=== PATIENT | male | born 1950 | race Caucasian/White ===

== ENCOUNTER → 2020-01-03 | Outpatient (CLI) | payer SELFPAY ==
--- NOTE | 2020-01-03 10:56 | ECGEPIP ---
[facility] Test Date: 2020-01-03 Pat Name: JUAN DAVID ZHANG Department: Room: - Gender: Male [employer]ker[employer] Agent: [facility] : 1950 Requested By: Gerald Kirk @ [facility] Order Number: [id number] Reading MD: Gladis Vyas Measurements Intervals [place] Rate: 64 P: 52 [place]: 145 QRS: 23 QRSD: 93 T: 31 QT: 379 QTc: 391 Interpretive Statements SINUS RHYTHM NORMAL NO PRIOR Electronically Signed on 01-03-2020 10:56:15 EDT by Gladis Vyas
[2020-01-03 11:00] LABS: INR 1.1; PROTHROMBIN TIME 13.9 SECONDS (11.8-14.0)
[2020-01-03 11:11] LABS: HEMATOCRIT 45.7 % (42.0-52.0); HEMOGLOBIN 15.6 g/dl (13.5-17.5); MEAN CORPUSCULAR HEMOGLOBIN 29.3 pg (27.0-33.0); MEAN CORPUSCULAR HGB CONC 34.1 g/dl (32.0-36.5); MEAN CORPUSCULAR VOLUME 85.9 fl (80.0-96.0); PLATELET COUNT, AUTOMATED 184 10^3/uL (150-450); RED BLOOD COUNT 5.32 10^6/uL (4.30-6.10); WHITE BLOOD COUNT 7.5 10^3/uL (4.0-10.0)
[2020-01-03 11:36] LABS: ALBUMIN 3.5 GM/DL (3.2-5.2); ALT/SGPT 19 U/L (12-78); BILIRUBIN,TOTAL 0.5 MG/DL (0.2-1.0); BLOOD UREA NITROGEN 28 MG/DL (7-18); CALCIUM LEVEL 8.9 MG/DL (8.8-10.2); CARBON DIOXIDE LEVEL 30 MEQ/L (21-32); CHLORIDE LEVEL 107 MEQ/L (98-107); CREATININE FOR GFR 0.79 MG/DL (0.70-1.30); GLOMERULAR FILTRATION RATE > 60.0 (>49); GLUCOSE, FASTING 117 MG/DL (70-100); POTASSIUM SERUM 4.2 MEQ/L (3.5-5.1); SODIUM LEVEL 140 MEQ/L (136-145); TOTAL PROTEIN 6.6 GM/DL (6.4-8.2)
--- NOTE | 2020-01-03 12:15 | REP ---
PA and lateral chest: There are no comparisons. The lung remy are clear. The cardiac size is normal. The irma, mediastinum, and skeletal structures are unremarkable. Impression: Negative PA and lateral chest. Electronically Signed by Ab Del Cid MD 01/03/2020 12:06 P
[2020-01-03 12:17] LABS: ERYTHROCYTE SEDIMENTATION RATE 4 mm/hr (0-20)
== END ==
LOC: M LAB 09:31
PROVIDERS: ATTEND Orthopaedic Surgery
DX: Z01.818 Encounter for other preprocedural examination (principal); M16.12 Unilateral primary osteoarthritis, left hip

== ENCOUNTER 2020-01-28 07:30 | Inpatient (IN) | payer SELFPAY ==
[~2020-01-28] VITALS: Ht 175.3 cm; Wt 77.6 kg
[~2020-01-28 07:30] MED LIST: IBUP200C28 PO
[2020-05-04] MEDS ORDERED: [UNRECOGNIZED DRUG - OTHER] PO (10:28)
[2020-05-04] MEDS ORDERED: PROBCAP14 PO (10:28)
[2020-05-04] MEDS ORDERED: MULTCAP PO (10:28)
[2020-05-04] MEDS ORDERED: COMPTAB7 PO (10:28)
--- NOTE | 2020-05-06 16:21 | HPE ---
DATE OF ADMISSION: 05/11/2020 ATTENDING PHYSICIAN: Dr. Gerald Kirk CHIEF COMPLAINT: Left hip pain and stiffness. HISTORY: The patient is a 70-year-old male with progressively worsening left hip pain and stiffness. He failed to improve with conservative measures. He continued to have symptoms with weightbearing activities and activities of daily living. He consented for an elective left total hip arthroplasty with Dr. Kirk for his continued symptoms. Medical optimization completed with Dr. Olivares and was reviewed today. CURRENT MEDICATIONS: - cod liver oil - multivitamin - prostate health oral capsule - ibuprofen 200 mg up to three times a day as needed CHRONIC MEDICAL CONDITIONS: None. PAST SURGICAL HISTORY: Tonsillectomy. ALLERGIES: There are NO KNOWN DRUG ALLERGIES. SOCIAL HISTORY: The patient has never smoked and denies alcohol use. REVIEW OF SYSTEMS: The patient denies fevers, chills, nausea, vomiting or diarrhea. Denies chest pain, shortness of breath, lightheadedness, dizziness or headaches. He denies any abdominal pain. He denies any recent upper respiratory or urinary tract infection symptoms. He does continue to have left hip pain with weightbearing activities and activities of daily living. PHYSICAL EXAMINATION: GENERAL: Well-nourished, well-developed male, in no apparent distress. He is alert, oriented and cooperative. Mood and affect are appropriate. VITAL SIGNS: Height 5 feet 6-1/2 inches. Weight 177 pounds. Temperature 98.6. Blood pressure 132/78. Heart rate 64. Respirations 14. NECK: Supple without lymphadenopathy. HEART: Regular rate and rhythm. LUNGS: Clear to auscultation bilaterally. ABDOMEN: Soft and nontender to palpation. Bowel sounds are present. MUSCULOSKELETAL: Left hip exhibits no gross abnormalities. Skin is intact. There is decreased motion of the hip, more so with internal rotation. Strength in the left lower extremity is 5/5. Calf is soft, nontender to palpation. No evidence of deep venous thrombosis (DVT). He is neurovascularly intact distally. LABORATORY DATA: EKG: Sinus rhythm. CHEST X-RAY: Negative PA and lateral chest. LEFT HIP X-RAY: Notable for end-stage degenerative changes. COMPLETE BLOOD COUNT: ESR 5, WBCs 7, RBCs 5.12, hemoglobin 15, hematocrit 44.5, platelets 186. COMPREHENSIVE METABOLIC PROFILE: Fasting glucose 76, BUN elevated at 20, creatinine decreased at 0.69, GFR greater than 60, sodium 141, potassium 4.2, chloride 107, carbon dioxide 29, anion gap decreased at 5, calcium 8.9, AST 14, ALT 20, alkaline phosphatase 50, total bilirubin 0.4, total protein 6.8, albumin 3.5, albumin-globulin ratio 1.1. Prothrombin time elevated at 14.3, INR 1.14. IMPRESSION: Left hip osteoarthritis with x-rays notable for end-stage degenerative changes. PLAN: The patient has consented for an elective left total hip arthroplasty with Dr. Kirk for his continued symptoms. Medical optimization completed with Dr. Johnson. The patient will use his Bactroban and Hibiclens as directed. He will be nothing by mouth after midnight the night prior to surgery. The patient will call [facility] Monday afternoon to get a report time for his day of surgery. The patient understands that he will take his primary sub acute care nurse's recommendations for how to take his daily medications. ASHWINI
[2020-05-11] MEDS ORDERED: LR 1,000 ML IV ONE (07:00)
[2020-05-11] MEDS ORDERED: ceFAZolin SOD 2 GM in IV 1 EA IV ONE (07:00)
[2020-05-11] MEDS ORDERED: fentaNYL 100 MCG/2 ML INJECTION (J3010) As Ordered ONE (08:40)
[2020-05-11] MEDS ORDERED: propofoL 200 MG/20 ML VIAL As Ordered ONE (08:40)
[2020-05-11] MEDS ORDERED: MIDAZOLAM INJ 2MG/2ML VIAL (J2250 PER 1MG) As Ordered ONE (08:40)
[2020-05-11] MEDS ORDERED: LIDOCAINE 2% 100MG/5ML SDV (FOR ANES.) As Ordered ONE (08:43)
--- NOTE | 2020-05-11 09:24 | IPN ---
DATE: 05/11/2020 Patient seen and examined. He wished to go ahead with a left hip replacement. He has been having significant pain with it. He had failed conservative management and understands the nature of the procedure, the risks of bleeding, infection, damage to nerves, vessels, persistent pain, wear loosening, dislocation, leg length inequality, blood clots, medical problems, , among others.
[2020-05-11] MEDS ORDERED: BUPIVACAINE LIPOSOME/PF 1.3% 20ML VIAL (13.3MG/ML)(EXPAREL)(C9290 PER1MG) As Ordered ONE (10:02)
[2020-05-11] MEDS ORDERED: ceFAZolin 1GM VIAL (J0690 PER 500MG) As Ordered ONE (10:02)
[2020-05-11] MEDS ORDERED: EPINEPHrine INJ 1 MG/ML 1ML AMP As Ordered ONE (10:02)
[2020-05-11] MEDS ORDERED: TRANEXAMIC ACID 100 MG/ML 10ML VIAL As Ordered ONE (10:02)
[2020-05-11] MEDS ORDERED: ePHEDrine SULFATE 25 MG/5 ML(5MG/ML) SYRINGE As Ordered ONE (11:19)
[2020-05-11] MEDS ORDERED: ACETAMINOPHEN 1000MG 100ML IV BTL (OFIRMEV) (J0131 PER 10MG) As Ordered ONE (11:24)
[2020-05-11] MEDS ORDERED: ONDANSETRON 4MG/2ML VIAL As Ordered ONE (11:24)
[2020-05-11] MEDS ORDERED: KETOROLAC 60MG 2ML VIAL As Ordered ONE (11:24)
[2020-05-11] MEDS ORDERED: LR 1,000 ML IV SCH ×2 (12:15)
[2020-05-11] MEDS ORDERED: MORPHINE 2 MG/ML 1ML VIAL (J2270) IV PRN (12:15)
[2020-05-11] MEDS ORDERED: HYDROMORPHONE HCL 0.5 MG/ 0.5 ML SYRINGE (J1170 PER 1) IV PRN (12:15)
[2020-05-11] MEDS ORDERED: ACETAMINOPHEN TAB 650MG DOSE (2X325MG) PO PRN (12:15)
[2020-05-11] MEDS ORDERED: PERCOCET 5MG/325MG TAB PO PRN (12:15)
[2020-05-11] MEDS ORDERED: fentaNYL 100 MCG/2 ML INJECTION (J3010) IV PRN (12:15)
[2020-05-11] MEDS ORDERED: MORPHINE 4 MG/ML 1ML VIAL/SYRINGE (J2270) IV PRN (12:15)
[2020-05-11] MEDS ORDERED: ONDANSETRON 4MG/2ML VIAL IV PRN ×2 (12:15)
--- NOTE | 2020-05-11 14:02 | REP ---
Clinical: Status post arthroplasty. Technique: AP and cross-table lateral views. Findings: The patient is status post left hip replacement with normal positioning and appearance to the femoral and acetabular components. Overlying postsurgical changes appreciated. Impression: Satisfactory left hip replacement radiographs. Electronically Signed by Jarrod Coyne MD 05/11/2020 12:40 P
[2020-05-11] MEDS ORDERED: oxyCODONE 5MG TAB As Ordered ONE ×2 (14:10→14:58)
[2020-05-11] MEDS: oxyCODONE 5MG TAB PO PRN ×2 (14:12→14:58)
[2020-05-11 15:30] VITALS: BP 141/69
[2020-05-11 16:00] VITALS: BP 140/70
[2020-05-11 16:30] VITALS: BP 145/72
--- NOTE | 2020-05-11 17:17 | HPEPDOC ---
General Date of Admission May 11, 2020 at 08:28 Date of Service: May 11, 2020 Chief Complaint The patient is a 70-year-old male admitted with a reason for visit of Left Hip Osteoarthritis. Source: Patient History of Present Illness Consultation report Consultation requested by Dr Kirk HPI: 70 year old male admitted for elective left total hip arthroplasty for advanced osteoarthritis that could not be managed by medical management. I am seeing the patient postoperatively in the PACU. Doing well except for pain int he left hip 12/30 which is just starting, sharp aching, no radiation. Home Medications Scheduled Ibuprofen (Ibuprofen) 200 Mg Capsule, 200 MG PO DAILY, (Reported) Lactobacillus Acidophilus (Probiotic) 1 Each Capsule, 1 CAP PO DAILY, (Reported) Multivitamin (Multivitamins) 1 Each Capsule, 1 CAP PO DAILY, (Reported) Saw/Vit E/Sod Steph/Lyc/Beta/Pyg (Prostate Health Caplet) 1 Each Tablet, 1 TAB PO DAILY, (Reported) [plexus vitamin drink] , 1 PO DAILY, (Reported) Allergies Coded Allergies: SEASONAL ALLERGIES (Verified Allergy, Intermediate, 05/04/20) Past Medical History Medical History None Family History Significant Family History: Hypertension Social History * Smoker: Denies Alcohol: rarely Drugs: denies A-FIB/CHADSVASC A-FIB History Current/History of A-Fib/PAF?: No Review of Systems Constitutional: Denies: Chills, Fever, Night Sweats Eyes: Denies: Pain, Vision change ENT: Denies: Head Aches, Ear Pain, Dysphagia Skin: Denies: Rash, Lesions, Breakdown Pulmonary: Denies: Dyspnea, Cough Cardiovascular: Denies: Chest Pain, Palpitations, Orthopnea, Paroxysmal Noc. Dyspnea, Lt Headedness Gastrointestinal: Denies: Nausea, Vomiting, Abdominal Pain, Diarrhea Genitourinary: Denies: Dysuria, Frequency, Incontinence, Retention Hematologic: Denies: Bruising, Bleeding Excessively Musculoskeletal: Reports: Joint Pain (left hip); Denies: Neck Pain, Back Pain, Muscle Pain, Spasms Physical Examination General Exam: Positive: Alert, Cooperative, No Acute Distress Eye Exam: Positive: PERRLA, Conjunctiva & lids normal, EOMI; Negative: Sclera icteric ENT Exam: Positive: Atraumatic, Mucous membr. moist/pink, Pharynx Normal Neck Exam: Positive: Supple; Negative: JVD, thyromegaly Chest Exam: Positive: Clear to auscultation, Normal air movement Heart Exam: Positive: Rate Normal, Regular Rhythm, Normal S1, Normal S2; Negative: Murmurs, Rubs Abdomen Exam: Positive: Normal bowel sounds, Soft; Negative: Tenderness, Hepatospenomegaly Extremity Exam: Positive: Normal pulses; Negative: Clubbing, Cyanosis, Edema Skin Exam: Positive: Nl turgor and temperature; Negative: Breakdown, Lesion Vital Signs Vital Signs Date Time Temp Pulse Resp B/P (MAP) Pulse Ox O2 Delivery O2 Flow Rate FiO2 05/11/20 16:00 97.5 56 18 140/70 (93) 97 Room Air Assessment/Plan HPI: 70 year old male admitted for elective left total hip arthroplasty for advanced osteoarthritis that could not be managed by medical management. I am seeing the patient postoperatively for managemetn of any medical comorbidities Left Total Hip arthroplasty pain control , dvt prophylaxis as er ortho PT/OT Patient does not have any medical problems at present. Will continue to follow while admitted. Plan / VTE VTE Prophylaxis Ordered?: Yes BAIRON WANG MD May 11, 2020 17:17
[2020-05-11 17:30] VITALS: BP 135/72
[2020-05-11] MEDS: ceFAZolin SOD 2 GM in IV 1 EA IV SCH (18:21)
[2020-05-11 22:00] VITALS: BP 134/72
[2020-05-12 02:33] VITALS: BP 120/67
[2020-05-12] MEDS: ceFAZolin SOD 2 GM in IV 1 EA IV SCH (03:22)
[2020-05-12 05:25] VITALS: BP 129/66
[2020-05-12] MEDS ORDERED: PERCOCET 5MG/325MG TAB PO PRN (06:15)
[2020-05-12 06:40] LABS: HEMATOCRIT 37.6 % (42.0-52.0); HEMOGLOBIN 12.5 g/dl (13.5-17.5); MEAN CORPUSCULAR HEMOGLOBIN 29.2 pg (27.0-33.0); MEAN CORPUSCULAR HGB CONC 33.2 g/dl (32.0-36.5); MEAN CORPUSCULAR VOLUME 87.9 fl (80.0-96.0); PLATELET COUNT, AUTOMATED 150 10^3/uL (150-450); RED BLOOD COUNT 4.28 10^6/uL (4.30-6.10); WHITE BLOOD COUNT 7.3 10^3/uL (4.0-10.0)
[2020-05-12] MEDS ORDERED: PERC5TAB12 PO (07:13)
[2020-05-12] MEDS ORDERED: XARE10TA PO (07:13)
[2020-05-12] MEDS ORDERED: MIRALAX *UNIT DOSE* 17GM PACKET PO SCH (09:00)
[2020-05-12] MEDS ORDERED: MOM 30ML SUSPENSION UDC PO SCH (09:00)
--- NOTE | 2020-05-12 15:24 | IPNPDOC ---
Text Note Date of Service The patient was seen on 05/12/20. NOTE Subjective: Pt feels well. pain controlled. No N/v/abd pain Objective: Vitals: (see below) General: No acute distress, laying comfortably in bed. HEENT: Moist mucous membranes. Neck: No JVD or lymphadenopathy Cardiac: RRR, No murmurs Pulm: Clear to auscultation b/l. No wheezing, rhonchi Abd: NT/ND + BS Ext: No edema or cyanosis Left hip site with bandage clean/dry. Distal pulses intact. cap refill <2sec. No bleeding noted. Labs (see below) Assessment/Plan 1.Left Total Hip arthroplasty - management per ortho. 2. Pain controlled DVT prophy: Per ortho PT on board. F/u with PCP in 1-2 weeks. VS,Fishbone, I+O VS, Fishbone, I+O Laboratory Tests 05/12/20 06:08 Vital Signs Date Time Temp Pulse Resp B/P (MAP) Pulse Ox O2 Delivery O2 Flow Rate FiO2 05/12/20 08:53 18 05/12/20 05:25 97.3 72 129/66 (87) 96 Nasal Cannula 2.0 I&O- Last 24 Hours up to 6 AM 05/12/20 05:59 Intake Total 2390 ml Output Total 200 ml Balance 2190 ml GABRIELA DIAZ MD May 12, 2020 15:24
[2020-05-12] MEDS ORDERED: RIVAROXABAN 10 MG TAB (XARELTO) PO SCH (18:00)
== END 2020-05-12 14:10 | disposition home or self-care (01) | DRG 301 ==
LOC: M OR 05-11 08:28 → M MS5PR 05-11 15:25
PROVIDERS: ADMIT Orthopaedic Surgery; ATTEND Orthopaedic Surgery
PROC: 0SRB0JZ Replacement of Left Hip Joint with Synthetic Substitute, Open Approach (ICD-10-PCS; principal; 2020-05-11 11:00)
DX: M16.12 Unilateral primary osteoarthritis, left hip (principal); Z79.899 Other long term (current) drug therapy

== ENCOUNTER → 2020-05-06 | Outpatient (CLI) | payer SELFPAY ==
[~2020-05-06] MED LIST changes: +COMPTAB7 PO; +MULTCAP PO; +PERC5TAB12 PO; +PROBCAP14 PO; +XARE10TA PO; +[UNRECOGNIZED DRUG - OTHER] PO
[2020-05-06 11:44] LABS: HEMATOCRIT 44.5 % (42.0-52.0); MEAN CORPUSCULAR HEMOGLOBIN 29.3 pg (27.0-33.0); MEAN CORPUSCULAR HGB CONC 33.7 g/dl (32.0-36.5); MEAN CORPUSCULAR VOLUME 86.9 fl (80.0-96.0); PLATELET COUNT, AUTOMATED 186 10^3/uL (150-450); RED BLOOD COUNT 5.12 10^6/uL (4.30-6.10)
[2020-05-06 11:55] LABS: INR 1.14; PROTHROMBIN TIME 14.3 SECONDS (11.8-14.0)
[2020-05-06 12:06] LABS: ERYTHROCYTE SEDIMENTATION RATE 5 mm/hr (0-20)
[2020-05-06 12:47] LABS: ALBUMIN 3.5 GM/DL (3.2-5.2); ALT/SGPT 20 U/L (12-78); BILIRUBIN,TOTAL 0.4 MG/DL (0.2-1.0); BLOOD UREA NITROGEN 20 MG/DL (7-18); CALCIUM LEVEL 8.9 MG/DL (8.8-10.2); CARBON DIOXIDE LEVEL 29 MEQ/L (21-32); CHLORIDE LEVEL 107 MEQ/L (98-107); CREATININE FOR GFR 0.69 MG/DL (0.70-1.30); GLOMERULAR FILTRATION RATE > 60.0 (>49); GLUCOSE, FASTING 76 MG/DL (70-100); POTASSIUM SERUM 4.2 MEQ/L (3.5-5.1); SODIUM LEVEL 141 MEQ/L (136-145); TOTAL PROTEIN 6.8 GM/DL (6.4-8.2)
--- NOTE | 2020-05-06 14:08 | REP ---
REASON: Total left hip arthroplasty. COMPARISON: No priors. FINDINGS: The superior mediastinal structures are midline. The cardiac silhouette is unremarkable in size, shape, and position. The diaphragmatic surfaces of the lungs are regular, and the costophrenic angles are clear. The pulmonary remy are clear. The imaged osseous structures are intact. IMPRESSION: There is no acute cardiopulmonary disease. Electronically Signed by Driss Wolff DO 05/06/2020 04:09 P
--- NOTE | 2020-05-07 14:53 | ECGEPIP ---
[facility] Test Date: 2020-05-06 Pat Name: JUAN DAVID ZHANG Department: Room: - Gender: Male [employer] General Manager: JA[employer] : 1950 Requested By: Gerald Kirk Order Number: [id number] Reading MD: Nawaf Lopez Measurements Intervals [place] Rate: 55 P: 52 CT: 153 QRS: 20 QRSD: 90 T: 25 QT: 404 QTc: 388 Interpretive Statements Sinus bradycardia Otherwise normal Other than slower rate unchanged from 01/03/20 Electronically Signed on 05-07-2020 14:53:38 EDT by Nawaf Lopez
== END ==
LOC: M LAB 10:35
PROVIDERS: ATTEND Orthopaedic Surgery
DX: Z01.818 Encounter for other preprocedural examination (principal); M17.12 Unilateral primary osteoarthritis, left knee

== ENCOUNTER → 2020-11-24 | Outpatient (CLI) | payer SELFPAY ==
[2020-11-24 13:55] LABS: BASO % 0.3 % (0.0-1.0); EOS # 0.1 10^3/uL (0.0-0.5); EOS % 1.4 % (0.0-3.0); HEMATOCRIT 39.3 % (42.0-52.0); HEMOGLOBIN 12.5 g/dl (13.5-17.5); LYMPH # 1.4 10^3/uL (1.5-5.0); LYMPH % 20.7 % (24.0-44.0); MEAN CORPUSCULAR HEMOGLOBIN 27.5 pg (27.0-33.0); MEAN CORPUSCULAR HGB CONC 31.8 g/dl (32.0-36.5); MEAN CORPUSCULAR VOLUME 86.4 fl (80.0-96.0); MONO # 0.6 10^3/uL (0.0-0.8); MONO % 8.8 % (0.0-5.0); NEUTROPHILS # 4.5 10^3/uL (1.5-8.5); NEUTROPHILS % 68.5 % (36.0-66.0); PLATELET COUNT, AUTOMATED 205 10^3/uL (150-450); RED BLOOD COUNT 4.55 10^6/uL (4.30-6.10); WHITE BLOOD COUNT 6.6 10^3/uL (4.0-10.0)
--- NOTE | 2020-11-24 14:20 | REP ---
INDICATION: PELVIC SWELLING, HIGH BPH LABS 1ST US 2ND COMPARISON: None TECHNIQUE: Real time B-mode ultrasound examination using curved array transducer. FINDINGS: Bladder demonstrates layering debris without wall thickening or mass lesion. Bilateral ureteral jets are identified. Prevoid bladder measures 14.9 x 12.3 x 10.4 cm (999 cc). Postvoid bladder measures 14.1 x 11.9 x 7.9 cm (693 cc). Postvoid residual equals 69% IMPRESSION: Significantly abnormal postvoid residual volume to the bladder. <Electronically signed by Jarrod Coyne > 11/24/20 [id number]
[2020-11-24 14:26] LABS: ALBUMIN 3.5 GM/DL (3.2-5.2); ALT/SGPT 20 U/L (12-78); BILIRUBIN,TOTAL 0.4 MG/DL (0.2-1.0); BLOOD UREA NITROGEN 19 MG/DL (7-18); CALCIUM LEVEL 9.1 MG/DL (8.8-10.2); CARBON DIOXIDE LEVEL 28 MEQ/L (21-32); CHLORIDE LEVEL 106 MEQ/L (98-107); CREATININE FOR GFR 0.87 MG/DL (0.70-1.30); GLOMERULAR FILTRATION RATE > 60.0 (>49); GLUCOSE, FASTING 88 MG/DL (70-100); POTASSIUM SERUM 3.9 MEQ/L (3.5-5.1); PROSTATIC SPECIFIC AG MONITOR 1.36 NG/ML (< 4.00); SODIUM LEVEL 140 MEQ/L (136-145); TOTAL PROTEIN 6.9 GM/DL (6.4-8.2)
== END ==
LOC: M LAB 13:17
PROVIDERS: ATTEND Family Medicine
DX: N40.0 Benign prostatic hyperplasia without lower urinary tract symptoms (principal); R63.4 Abnormal weight loss

== ENCOUNTER → 2021-02-11 | Outpatient (CLI) | payer SELFPAY ==
[2021-02-11 11:59] LABS: HEMATOCRIT 42.3 % (42.0-52.0); HEMOGLOBIN 13.9 g/dl (13.5-17.5); MEAN CORPUSCULAR HEMOGLOBIN 28.3 pg (27.0-33.0); MEAN CORPUSCULAR HGB CONC 32.9 g/dl (32.0-36.5); MEAN CORPUSCULAR VOLUME 86.2 fl (80.0-96.0); PLATELET COUNT, AUTOMATED 204 10^3/uL (150-450); RED BLOOD COUNT 4.91 10^6/uL (4.30-6.10); WHITE BLOOD COUNT 6.4 10^3/uL (4.0-10.0)
[2021-02-11 12:10] LABS: INR 1.07; PROTHROMBIN TIME 14.1 SECONDS (12.5-14.3)
[2021-02-11 12:31] LABS: ERYTHROCYTE SEDIMENTATION RATE 7 mm/hr (0-20)
[2021-02-11 12:40] LABS: ALBUMIN 3.6 GM/DL (3.2-5.2); ALT/SGPT 15 U/L (12-78); BILIRUBIN,TOTAL 0.3 MG/DL (0.2-1.0); BLOOD UREA NITROGEN 24 MG/DL (7-18); CALCIUM LEVEL 9.3 MG/DL (8.8-10.2); CARBON DIOXIDE LEVEL 30 MEQ/L (21-32); CHLORIDE LEVEL 107 MEQ/L (98-107); GLOMERULAR FILTRATION RATE > 60.0 (>49); GLUCOSE, FASTING 79 MG/DL (70-100); POTASSIUM SERUM 4.2 MEQ/L (3.5-5.1); SODIUM LEVEL 142 MEQ/L (136-145); TOTAL PROTEIN 6.9 GM/DL (6.4-8.2)
--- NOTE | 2021-02-11 12:55 | REP ---
INDICATION: PREOP- LAB AND EKG ORDER COMPARISON: 05/06/2020 TECHNIQUE: PA and lateral. FINDINGS: The mediastinum and cardiac silhouette are normal. The lung remy are clear and without acute consolidation, effusion, or pneumothorax. The skeletal structures are intact and normal. IMPRESSION: No acute cardiopulmonary process. <Electronically signed by Jarrod Coyne > 02/11/21 [id number]
--- NOTE | 2021-02-11 20:32 | ECGEPIP ---
[facility] Test Date: 2021-02-11 Pat Name: JUAN DAVID ZHANG Department: Room: - Gender: Male [employer] Performer: JAIMEE : 1950 Requested By: Gerald Kirk Order Number: [id number] Reading MD: Jeannine Campos Measurements Intervals [place] Rate: 56 P: 51 [place]: 160 QRS: 51 QRSD: 88 T: 42 QT: 416 QTc: 401 Interpretive Statements SINUS BRADYCARDIA NO CHANGE COMPARED TO 05/06/20 Electronically Signed on 02-11-2021 20:32:45 EDT by Jeannine Campos
== END ==
LOC: M LAB 10:59
PROVIDERS: ATTEND Orthopaedic Surgery
DX: Z01.818 Encounter for other preprocedural examination (principal)